=== PATIENT | male | born 1995 | race Caucasian/White ===

== ENCOUNTER 2016-11-18 15:04 | Emergency (ER) | payer OTHER, SELFPAY ==
[2016-11-18] MEDS ORDERED: Clindamycin 150 MG CAP ONE (16:09)
== END 2016-11-18 16:24 | disposition home or self-care (01) ==
LOC: NAV ERS 15:04
DX: S00.81XA Abrasion of other part of head, initial encounter (principal); S40.212A Abrasion of left shoulder, initial encounter; S60.512A Abrasion of left hand, initial encounter; L03.211 Cellulitis of face; L03.114 Cellulitis of left upper limb; W19.XXXA Unspecified fall, initial encounter
CPT/HCPCS: 99282